=== PATIENT | male | born 1980 | race Caucasian/White ===

== ENCOUNTER 2018-06-11 09:29 | Inpatient (IN) | payer OTHER ==
[2018-06-11] MEDS: SOD CHLORIDE 0.9% 1,000 ML IV (09:42)
[2018-06-11 09:59] LABS: ADD MAN DIFF? NO
[2018-06-11 10:00] LABS: WHITE BLOOD COUNT 14.6 10^3/ul (4.8-10.8)
[2018-06-11 10:00] LABS: BASOPHIL # 0.1 10^3/ul (0.0-0.1); BASOPHILS % 0.5 % (0.0-2.0); EOSINOPHILS % 0.1 % (0.0-7.0); HEMATOCRIT 49.3 % (42.0-52.0); HEMOGLOBIN 16.4 g/dl (14.0-18.0); LYMPHOCYTES # 4.3 10^3/ul (0.8-2.9); LYMPHOCYTES % 29.5 % (15.0-51.0); MEAN CORPUSCULAR HEMOGLOBIN 34.5 pg (29.0-33.0); MEAN CORPUSCULAR HGB CONC 33.3 g/dl (32.0-37.0); MEAN CORPUSCULAR VOLUME 103.8 fl (82.0-101.0); MEAN PLATELET VOLUME 10.3 fl (7.4-10.4); MONOCYTES % 6.6 % (0.0-11.0); NEUTROPHILS % 61.7 % (39.0-77.0); PLATELET COUNT 293 10^3/UL (140-415); RED BLOOD COUNT 4.75 10^6/ul (4.70-6.10); RED CELL DISTRIBUTION WIDTH 12.2 % (11.5-14.5)
[2018-06-11 10:03] LABS: MODE NASAL CANNULA; MetHgb Venous 0.3 %; Sample Type Blood venous; Site VENOUS LINE; Venous COHb 1.3 %; Venous Fraction OxyHgb 85.4 %; Venous Oxygen Sat 86.8 mmHG (55.0-75.0)
[2018-06-11 10:12] LABS: ADD UMIC YES; UR ASCORBIC ACID NEGATIVE (NEGATIVE); UR BACTERIA FEW /HPF (NONE SEEN); UR BILIRUBIN (Dip) NEGATIVE (NEGATIVE); UR BLOOD (Dip) 1+ mg/dL (NEGATIVE); UR CLARITY SLIGHTLY CLOUDY (CLEAR); UR COLOR YELLOW (YELLOW); UR GLUCOSE (Dip) 3+ mg/dL (NEGATIVE); UR KETONES (Dip) 2+ mg/dL (NEGATIVE); UR LEUKOCYTE ESTERASE (Dip) NEGATIVE Leu/ul (NEGATIVE); UR NITRITE (Dip) NEGATIVE (NEGATIVE); UR RBC 0 /HPF (0-5); UR SPECIFIC GRAVITY (Dip) 1.022 (1.003-1.030); UR SQUAMOUS EPITHELIAL CELL FEW /HPF (FEW); UR TOTAL PROTEIN (Dip) 2+ mg/dl (NEGATIVE); UR UROBILINOGEN (Dip) NEGATIVE (NEGATIVE); UR WBC 2 /HPF (0-5)
[2018-06-11] MEDS ORDERED: SODIUM CHLORIDE 23.4% 77 MEQ in DEXTROSE 10% 1,000 ML IV (10:16)
[2018-06-11] MEDS ORDERED: POTASSIUM CHLORIDE 40 MEQ in SOD CHLORIDE 0.9% 1,000 ML IV (10:16)
[2018-06-11] MEDS ORDERED: SOD CHLORIDE 0.9% 1,000 ML IV (10:16)
[2018-06-11 10:22] LABS: BLOOD UREA NITROGEN 10 mg/dl (7-20); CALCIUM 8.7 mg/dl (8.4-10.2); CHLORIDE 105 mmol/L (97-110); CREATININE 0.89 mg/dl (0.61-1.24); Estimated GFR > 60 mL/min (>60); MAGNESIUM 2.2 mg/dl (1.7-2.5); PHOSPHORUS 6.5 mg/dl (2.5-4.9); POTASSIUM 4.2 mmol/L (3.5-5.1); SODIUM 140 mmol/L (135-144)
[2018-06-11 10:23] LABS: ANION GAP 30 (5-13)
[2018-06-11 10:26] LABS: CARBON DIOXIDE < 5 mmol/L (21-31); GLUCOSE 565 mg/dl (70-220)
[2018-06-11] MEDS: LACTATED RINGER'S 700 ML IV (10:27)
[2018-06-11] MEDS ORDERED: DEXTROSE 50% 50 ML SYRINGE IV ×2 (10:30)
[2018-06-11] MEDS: POTASSIUM CHLORIDE 30 MEQ in SOD CHLORIDE 0.9% 1,000 ML IV ×3 (10:52→22:57)
[2018-06-11] MEDS: INSULIN REGULAR, HUMAN 100 UNIT in SOD CHLORIDE 0.9% 100 ML IV (10:54)
[2018-06-11] MEDS ORDERED: ACETAMINOPHEN 325 MG TAB PO ×2 (11:30→17:00)
[2018-06-11] MEDS ORDERED: ONDANSETRON 4 MG INJ IV ×2 (11:30→17:00)
[2018-06-11 11:44] LABS: HEMOGLOBIN A1C 12.5 % (0-5.9)
[2018-06-11 11:53] LABS: ETHANOL < 10.0 mg/dl
[2018-06-11 12:13] LABS: AMPHETAMINE/METHAMPHETAMINE NEGATIVE (NEGATIVE); BARBITURATES NEGATIVE (NEGATIVE)
[2018-06-11 12:14] LABS: BENZODIAZEPINES NEGATIVE (NEGATIVE); CANNABINOIDS NEGATIVE (NEGATIVE); COCAINE NEGATIVE (NEGATIVE); OPIATES NEGATIVE (NEGATIVE)
[2018-06-11 12:24] LABS: MODE NASAL CANNULA; MetHgb Venous 0.3 %; Sample Type Blood venous; Site VENOUS LINE; Venous COHb 1.2 %; Venous Fraction OxyHgb 78.8 %; Venous Total Hemglobin 16.1 g/dl
[2018-06-11 13:45] LABS: BLOOD UREA NITROGEN 10 mg/dl (7-20); CALCIUM 8.3 mg/dl (8.4-10.2); CHLORIDE 111 mmol/L (97-110); CREATININE 0.81 mg/dl (0.61-1.24); Estimated GFR > 60 mL/min (>60); MAGNESIUM 2.2 mg/dl (1.7-2.5); PHOSPHORUS 4.8 mg/dl (2.5-4.9); POTASSIUM 3.8 mmol/L (3.5-5.1); SODIUM 143 mmol/L (135-144)
[2018-06-11 13:55] LABS: ANION GAP 27 (5-13); CARBON DIOXIDE < 5 mmol/L (21-31); GLUCOSE 442 mg/dl (70-220)
[2018-06-11] MEDS: SODIUM CHLORIDE 23.4% 77 MEQ, POTASSIUM CHLORIDE 30 MEQ in DEXTROSE 10% 1,000 ML IV ×2 (16:03→22:59)
[2018-06-11 16:38] LABS: MODE NASAL CANNULA; MetHgb Venous 0.3 %; Sample Type Blood venous; Site OTHER; Venous COHb 1.5 %; Venous Fraction OxyHgb 68.2 %; Venous Oxygen Sat 69.5 mmHG (55.0-75.0)
[2018-06-11] MEDS ORDERED: ZOLPIDEM 5 MG TAB PO (17:00)
[2018-06-11] MEDS ORDERED: HYDROCODONE/APAP (5/325) TAB PO (17:00)
[2018-06-11] MEDS ORDERED: DOCUSATE SODIUM 100 MG CAP PO (17:00)
[2018-06-11] MEDS ORDERED: morphine 2 MG INJ IV (17:00)
[2018-06-11] MEDS ORDERED: NACL 0.9% 3 ML SYG IV (17:00)
[2018-06-11] MEDS ORDERED: LORAZEPAM 2 MG INJ IV (17:00)
[2018-06-11 17:10] LABS: BLOOD UREA NITROGEN 9 mg/dl (7-20); CALCIUM 8.2 mg/dl (8.4-10.2); CHLORIDE 115 mmol/L (97-110); CREATININE 0.62 mg/dl (0.61-1.24); Estimated GFR > 60 mL/min (>60); GLUCOSE 216 mg/dl (70-220); MAGNESIUM 1.9 mg/dl (1.7-2.5); POTASSIUM 4.1 mmol/L (3.5-5.1); SODIUM 143 mmol/L (135-144)
[2018-06-11 17:12] LABS: ANION GAP 23 (5-13)
[2018-06-11 17:13] LABS: CARBON DIOXIDE < 5 mmol/L (21-31)
[2018-06-11 20:55] LABS: ANION GAP 14 (5-13); BLOOD UREA NITROGEN 8 mg/dl (7-20); CALCIUM 8.1 mg/dl (8.4-10.2); CHLORIDE 116 mmol/L (97-110); CREATININE 0.45 mg/dl (0.61-1.24); Estimated GFR > 60 mL/min (>60); GLUCOSE 213 mg/dl (70-220); MAGNESIUM 1.7 mg/dl (1.7-2.5); PHOSPHORUS 1.6 mg/dl (2.5-4.9); POTASSIUM 3.7 mmol/L (3.5-5.1); SODIUM 139 mmol/L (135-144)
[2018-06-11 21:08] LABS: CARBON DIOXIDE 9 mmol/L (21-31)
[2018-06-11 21:38] LABS: MODE NASAL CANNULA; MetHgb Venous 0.3 %; Sample Type Blood venous; Site Right Brachial; Venous COHb 1.4 %; Venous Fraction OxyHgb 87.1 %; Venous Oxygen Sat 88.6 mmHG (55.0-75.0); Venous Total Hemglobin 13.6 g/dl
[2018-06-12 00:17] LABS: AADO2 Venous 147.6 mmHg; MODE NASAL CANNULA; MetHgb Venous 0.3 %; Sample Type Blood venous; Site VENOUS LINE; Venous COHb 1.5 %; Venous Fraction OxyHgb 87.7 %; Venous Oxygen Sat 89.3 mmHG (55.0-75.0); Venous Total Hemglobin 13.8 g/dl
[2018-06-12] MEDS: INSULIN REGULAR, HUMAN 100 UNIT in SOD CHLORIDE 0.9% 100 ML IV (00:38)
[2018-06-12 01:08] LABS: ANION GAP 9 (5-13); BLOOD UREA NITROGEN 7 mg/dl (7-20); CALCIUM 8.1 mg/dl (8.4-10.2); CARBON DIOXIDE 15 mmol/L (21-31); CHLORIDE 115 mmol/L (97-110); CREATININE 0.39 mg/dl (0.61-1.24); Estimated GFR > 60 mL/min (>60); GLUCOSE 198 mg/dl (70-220); MAGNESIUM 1.6 mg/dl (1.7-2.5); PHOSPHORUS 1.5 mg/dl (2.5-4.9); SODIUM 139 mmol/L (135-144)
[2018-06-12] MEDS: SODIUM CHLORIDE 23.4% 77 MEQ, POTASSIUM CHLORIDE 40 MEQ in DEXTROSE 10% 1,000 ML IV ×2 (02:30→06:36)
[2018-06-12 04:25] LABS: MODE ROOM AIR; MetHgb Venous 0.3 %; Sample Type Blood venous; Site VENOUS LINE; Venous COHb 0.9 %; Venous Fraction OxyHgb 91.8 %; Venous Oxygen Sat 92.9 mmHG (55.0-75.0); Venous Total Hemglobin 12.9 g/dl
[2018-06-12 05:07] LABS: ADD MAN DIFF? NO
[2018-06-12 05:15] LABS: WHITE BLOOD COUNT 4.6 10^3/ul (4.8-10.8)
[2018-06-12 05:15] LABS: BASOPHILS % 0.2 % (0.0-2.0); EOSINOPHILS % 0.7 % (0.0-7.0); HEMATOCRIT 33.8 % (42.0-52.0); HEMOGLOBIN 12.1 g/dl (14.0-18.0); LYMPHOCYTES # 1.1 10^3/ul (0.8-2.9); LYMPHOCYTES % 23.7 % (15.0-51.0); MEAN CORPUSCULAR HEMOGLOBIN 34.6 pg (29.0-33.0); MEAN CORPUSCULAR HGB CONC 35.8 g/dl (32.0-37.0); MEAN CORPUSCULAR VOLUME 96.6 fl (82.0-101.0); MONOCYTE # 0.7 10^3/ul (0.3-0.9); MONOCYTES % 15.4 % (0.0-11.0); NEUTROPHIL # 2.7 10^3/ul (1.6-7.5); NEUTROPHILS % 59.6 % (39.0-77.0); PLATELET COUNT 157 10^3/UL (140-415); RED CELL DISTRIBUTION WIDTH 12.1 % (11.5-14.5)
[2018-06-12 06:09] LABS: ANION GAP 7 (5-13); BLOOD UREA NITROGEN 7 mg/dl (7-20); CALCIUM 8.2 mg/dl (8.4-10.2); CARBON DIOXIDE 15 mmol/L (21-31); CHLORIDE 118 mmol/L (97-110); CREATININE 0.37 mg/dl (0.61-1.24); Estimated GFR > 60 mL/min (>60); GLUCOSE 151 mg/dl (70-220); MAGNESIUM 1.7 mg/dl (1.7-2.5); PHOSPHORUS 1.6 mg/dl (2.5-4.9); SODIUM 140 mmol/L (135-144)
[2018-06-12 06:15] LABS: POTASSIUM 2.8 mmol/L (3.5-5.1)
[2018-06-12] MEDS: POTASSIUM CHLORIDE 100 ML IVPB ×2 (07:32→09:55)
[2018-06-12 08:57] LABS: HEMOGLOBIN A1C 12.9 % (0-5.9)
[2018-06-12 10:10] LABS: MODE ROOM AIR; MetHgb Venous 0.3 %; Sample Type Blood venous; Site VENOUS LINE; Venous COHb 1.6 %; Venous Fraction OxyHgb 73.2 %; Venous Oxygen Sat 74.6 mmHG (55.0-75.0); Venous Total Hemglobin 12.7 g/dl
[2018-06-12 10:30] LABS: ANION GAP 5 (5-13); BLOOD UREA NITROGEN 6 mg/dl (7-20); CALCIUM 8.3 mg/dl (8.4-10.2); CARBON DIOXIDE 17 mmol/L (21-31); CHLORIDE 116 mmol/L (97-110); CREATININE 0.36 mg/dl (0.61-1.24); Estimated GFR > 60 mL/min (>60); GLUCOSE 163 mg/dl (70-220); POTASSIUM 3.1 mmol/L (3.5-5.1); SODIUM 138 mmol/L (135-144)
[2018-06-12] MEDS: INSULIN GLARGINE [LANTus] (100 UNITS/ML) SYG SC ×2 (12:16→20:20)
[2018-06-12] MEDS: MULTIVITAMINS 10 ML, THIAMINE 100 MG, FOLIC ACID 1 MG in SOD CHLORIDE 0.9% 1,000 ML IVPB (12:47)
[2018-06-12] MEDS: INSULIN ASPART [NOVOLOG] 3 ML PEN SC ×3 (17:33→20:22)
[2018-06-13] MEDS: ACCU-CHEK XX (02:00)
[2018-06-13 05:21] LABS: ADD MAN DIFF? NO
[2018-06-13 05:28] LABS: WHITE BLOOD COUNT 4.4 10^3/ul (4.8-10.8)
[2018-06-13 05:28] LABS: BASOPHILS % 0.2 % (0.0-2.0); EOSINOPHILS # 0.1 10^3/ul (0.0-0.5); EOSINOPHILS % 1.6 % (0.0-7.0); HEMATOCRIT 32.7 % (42.0-52.0); HEMOGLOBIN 11.8 g/dl (14.0-18.0); LYMPHOCYTES % 44.1 % (15.0-51.0); MEAN CORPUSCULAR HEMOGLOBIN 34.9 pg (29.0-33.0); MEAN CORPUSCULAR HGB CONC 36.1 g/dl (32.0-37.0); MEAN CORPUSCULAR VOLUME 96.7 fl (82.0-101.0); MEAN PLATELET VOLUME 9.6 fl (7.4-10.4); MONOCYTE # 0.5 10^3/ul (0.3-0.9); MONOCYTES % 11.3 % (0.0-11.0); NEUTROPHIL # 1.9 10^3/ul (1.6-7.5); NEUTROPHILS % 42.6 % (39.0-77.0); PLATELET COUNT 131 10^3/UL (140-415); RED BLOOD COUNT 3.38 10^6/ul (4.70-6.10); RED CELL DISTRIBUTION WIDTH 12.6 % (11.5-14.5)
[2018-06-13 05:56] LABS: ANION GAP 6 (5-13); BLOOD UREA NITROGEN 7 mg/dl (7-20); CALCIUM 8.5 mg/dl (8.4-10.2); CARBON DIOXIDE 22 mmol/L (21-31); CHLORIDE 111 mmol/L (97-110); Estimated GFR > 60 mL/min (>60); GLUCOSE 154 mg/dl (70-220); MAGNESIUM 1.9 mg/dl (1.7-2.5); PHOSPHORUS 2.2 mg/dl (2.5-4.9); POTASSIUM 3.1 mmol/L (3.5-5.1); SODIUM 139 mmol/L (135-144)
[2018-06-13] MEDS: INSULIN ASPART [NOVOLOG] 3 ML PEN SC ×4 (08:16→13:20)
[2018-06-13] MEDS: MULTIVITAMINS 10 ML, THIAMINE 100 MG, FOLIC ACID 1 MG in SOD CHLORIDE 0.9% 1,000 ML IVPB (09:54)
[2018-06-13] MEDS: POTASSIUM CHLORIDE (SR) 20 MEQ TAB PO (11:23)
[2018-06-13] MEDS ORDERED: GLUCOSE GEL 15 GRAM TUBE BUCCAL (16:00)
[2018-06-13] MEDS ORDERED: GLUCOSE GEL 15 GRAM TUBE PO ×2 (16:00)
[2018-06-13] MEDS ORDERED: GLUCAGON 1 MG INJ IM (16:00)
[2018-06-13] MEDS ORDERED: DEXTROSE 50% 50 ML SYRINGE IV ×2 (16:00)
== END 2018-06-13 16:10 | disposition home or self-care (01) | DRG 639 ==
LOC: 2NE 06-12 16:48 → E/R 09:29 → ICU 11:12
PROVIDERS: Internal Medicine
DX: E11.10 Type 2 diabetes mellitus with ketoacidosis without coma (principal); E78.5 Hyperlipidemia, unspecified; F10.10 Alcohol abuse, uncomplicated; Y90.0 Blood alcohol level of less than 20 mg/100 ml; E11.21 Type 2 diabetes mellitus with diabetic nephropathy; Z91.14 Patient's other noncompliance with medication regimen; Z79.4 Long term (current) use of insulin; Z79.84 Long term (current) use of oral hypoglycemic drugs; E87.6 Hypokalemia
CPT/HCPCS: 36415; 80048; 80307; 81001; 82803; 82962; 83036; 83735; 84100; 85025; 87081; 90686; 96360; 99291-25